=== PATIENT | female | born 1980 | race Caucasian/White ===

== ENCOUNTER 2019-10-24 17:01 | Emergency (ER) | payer OTHER ==
[~2019-10-24] VITALS: Wt 47.6 kg
[~2019-10-24 17:01] MED LIST: AMOXICILLIN500 MG PO; ANAPROX DS550 MG PO; BACTRIM DS 8001 TA1 PO; BIRTH CONTROL1 EACH PO; FLAGYL500 MG PO; MOTRIN800 MG PO; PONSTEL250 MG PO; VIBRA-TAB100 MG PO; VICODIN 5/500 505 MG PO; VICODIN 500 MG-1 TAB PO; ZITHROMAX Z PA250 MG PO
[2019-10-24 17:05] VITALS: BP 116/76
[2019-10-24 18:15] LABS: BILIRUBIN NEGATIVE (NEGATIVE); BLOOD NEGATIVE (NEGATIVE); CLARITY CLEAR (CLEAR); COLOR YELLOW (YELLOW); GLUCOSE NEGATIVE (NEGATIVE); KETONE NEGATIVE (NEGATIVE); LEUKO ESTERASE NEGATIVE (NEGATIVE); NITRITE NEGATIVE (NEGATIVE); SPECIFIC GRAVITY 1.015 (1.005-1.030); UROBILINOGEN 0.2 E.U./dl (0.2-1.0)
[2019-10-24 18:17] LABS: BACTERIA TRACE; WBC 0-2 wbc/hpf (0-5)
== END 2019-10-24 19:11 | disposition home or self-care (01) ==
LOC: ED 17:01
PROVIDERS: Physician Assistant
DX: Z20.2 Contact with and (suspected) exposure to infections with a predominantly sexual mode of transmission (principal)

== ENCOUNTER 2021-03-08 19:12 | Emergency (ER) | payer OTHER ==
[~2021-03-08] VITALS: Ht 162.5 cm; Wt 49.9 kg
[2021-03-08 19:45] VITALS: BP 100/70
[2021-03-08 20:06] LABS: BASO % 0.2 % (0.0-1.0); LYMPH # 0.5 10*3/uL (1.3-4.4); LYMPH % 8.3 % (27.0-41.0); MEAN CORPUSCULAR HGB 29.6 pg (27.0-31.0); MEAN CORPUSCULAR HGB CONC 33.6 g/dl (33.0-37.0); MEAN PLATELET VOLUME 9.4 fl (9.6-12.3); NEUT # 4.2 10*3/uL (2.3-7.9); NEUT % 73.3 % (47.0-73.0); PLATELET COUNT AUTOMATED 220 10*3/uL (130-400); RED CELL DISTRI WIDTH 12.6 % (0-14.5); WHITE BLOOD COUNT 5.7 10*3/uL (4.8-10.8)
[2021-03-08 20:20] LABS: ALBUMIN 3.7 gm/dl (3.1-4.5); ALKALINE PHOSPHATASE 120 U/L (45-117); BUN 7 mg/dl (7-24); CHLORIDE 103 mmol/L (98-107); CREATININE 0.82 mg/dL (0.55-1.02); SGOT/AST 50 IU/L (3-35); SGPT/ALT 69 U/L (12-78); SODIUM 137 mmol/L (136-145); TOTAL PROTEIN 7.6 gm/dL (6.4-8.2)
[2021-03-08 20:48] LABS: BILIRUBIN Negative (Negative); BLOOD 1+ (Negative); CLARITY Clear (Clear); COLOR Yellow (Yellow); GLUCOSE Negative (Negative); KETONE Negative (Negative); LEUKO ESTERASE Negative (Negative); NITRITE Negative (Negative); SPECIFIC GRAVITY 1.015 (1.001-1.030); UROBILINOGEN 0.2 E.U./dl (0.0-1.0)
[2021-03-08 21:03] LABS: BACTERIA 1+; MUCOUS TRACE; WBC 0-2 wbc/hpf (0-5)
== END 2021-03-08 22:33 | disposition home or self-care (01) ==
LOC: ED 19:12
PROVIDERS: Nurse Practitioner Family
DX: U07.1 COVID-19 (principal)

== ENCOUNTER 2021-06-25 17:20 | Emergency (ER) | payer OTHER ==
[~2021-06-25] VITALS: Wt 49.9 kg
[2021-06-25 17:35] VITALS: BP 138/86
[2021-06-25] MEDS ORDERED: CLINDAMYCIN HC300 MG PO (19:41)
== END 2021-06-25 20:11 | disposition home or self-care (01) ==
LOC: ED 17:20
DX: K04.7 Periapical abscess without sinus (principal); Z79.899 Other long term (current) drug therapy; Z90.49 Acquired absence of other specified parts of digestive tract; Z98.890 Other specified postprocedural states

== ENCOUNTER 2021-10-08 23:20 | Emergency (ER) | payer OTHER ==
[~2021-10-08 23:20] MED LIST changes: +CLINDAMYCIN HC300 MG PO
[2021-10-08 23:28] VITALS: BP 126/86
[2021-10-09] MEDS ORDERED: ULTRAM50 MG PO (00:58)
[2021-10-09] MEDS ORDERED: AMOXICILLIN500 M2 PO (00:58)
== END 2021-10-09 01:03 | disposition home or self-care (01) ==
LOC: ED 23:20
DX: K04.7 Periapical abscess without sinus (principal); Z79.899 Other long term (current) drug therapy; Z90.49 Acquired absence of other specified parts of digestive tract

== ENCOUNTER 2022-09-10 09:12 | Emergency (ER) | payer OTHER ==
[~2022-09-10] VITALS: Ht 162.5 cm; Wt 49.9 kg
[~2022-09-10 09:12] MED LIST changes: +AMOXICILLIN500 M2 PO; +ULTRAM50 MG PO; +VIBRAMYCIN100 MG PO
[2022-09-10 09:23] VITALS: BP 151/70
[2022-09-10 09:39] LABS: BILIRUBIN Negative (Negative); BLOOD Negative (Negative); CLARITY Clear (Clear); COLOR Yellow (Yellow); GLUCOSE Negative (Negative); KETONE Negative (Negative); LEUKO ESTERASE Trace (Negative); NITRITE Negative (Negative)
[2022-09-10 09:55] LABS: BASO # 0.1 10*3/uL (0.0-0.1); BASO % 0.6 % (0.0-1.0); EOS # 0.1 10*3/uL (0.0-0.4); EOS % 1.6 % (1.0-4.0); HEMATOCRIT 37.1 % (37.0-47.0); LYMPH # 2.5 10*3/uL (1.3-4.4); MEAN CELL VOLUME 85.9 fl (81.0-99.0); MEAN CORPUSCULAR HGB 30.1 pg (27.0-31.0); MEAN PLATELET VOLUME 8.9 fl (9.6-12.3); MONO # 0.7 10*3/uL (0.1-1.0); MONO % 7.9 % (3.0-9.0); NEUT % 59.7 % (47.0-73.0); PLATELET COUNT AUTOMATED 243 10*3/uL (130-400); RED BLOOD COUNT 4.32 10*6/uL (4.10-5.10); RED CELL DISTRI WIDTH 11.9 % (0-14.5); WHITE BLOOD COUNT 8.4 10*3/uL (4.8-10.8)
[2022-09-10 10:02] LABS: BACTERIA 1+
[2022-09-10 10:33] LABS: ALKALINE PHOSPHATASE 75 U/L (46-116); BUN 10 mg/dl (9-23); CHLORIDE 105 mmol/L (98-107); POTASSIUM 3.5 mmol/L (3.4-5.1); SGPT/ALT 9 U/L (10-49); THYROID STIM HORMONE (HS) 0.775 uIU/ml (0.550-4.780); TOTAL PROTEIN 6.8 gm/dL (6.0-8.0)
[2022-09-10] MEDS ORDERED: LASIX20 MG PO (11:13)
== END 2022-09-10 11:15 | disposition home or self-care (01) ==
LOC: ED 09:12
PROVIDERS: Emergency Medicine
DX: I89.0 Lymphedema, not elsewhere classified (principal); J45.909 Unspecified asthma, uncomplicated; Z90.49 Acquired absence of other specified parts of digestive tract; Z98.890 Other specified postprocedural states; Z79.899 Other long term (current) drug therapy

== ENCOUNTER 2023-06-10 11:14 | Emergency (ER) | payer OTHER ==
[~2023-06-10] VITALS: Ht 162.5 cm; Wt 52.2 kg
[~2023-06-10 11:14] MED LIST changes: +LASIX20 MG PO
[2023-06-10 11:37] VITALS: BP 133/83
[2023-06-10] MEDS ORDERED: Sulfamethoxazole/Trimethopri 1 TAB TAB PO ONE (11:55)
[2023-06-10] MEDS ORDERED: METRONIDAZOLE 500 MG TAB PO ONE (11:55)
[2023-06-10 11:58] LABS: BILIRUBIN Negative (Negative); BLOOD Negative (Negative); CLARITY Clear (Clear); COLOR Yellow (Yellow); GLUCOSE Negative (Negative); KETONE Negative (Negative); LEUKO ESTERASE Negative (Negative); NITRITE Negative (Negative); SPECIFIC GRAVITY 1.025 (1.001-1.030)
[2023-06-10 12:11] LABS: MUCOUS TRACE; RBC 0-2 rbc/hpf (0-2)
[2023-06-10] MEDS ORDERED: METRONIDAZOLE500 M1 PO (12:17)
[2023-06-10] MEDS ORDERED: SEPTDS PO (12:17)
== END 2023-06-10 12:20 | disposition home or self-care (01) ==
LOC: ED 11:14
PROVIDERS: Emergency Medicine
DX: L03.811 Cellulitis of head [any part, except face] (principal); N76.0 Acute vaginitis; J45.909 Unspecified asthma, uncomplicated; Z90.49 Acquired absence of other specified parts of digestive tract; Z98.890 Other specified postprocedural states

== ENCOUNTER 2023-10-08 17:44 | Emergency (ER) | payer OTHER ==
[~2023-10-08 17:44] MED LIST changes: +METRONIDAZOLE500 M1 PO; +SEPTDS PO
[2023-10-08 17:49] VITALS: BP 136/90
[2023-10-08] MEDS ORDERED: METRONIDAZOLE500 M1 PO (17:58)
[2023-10-08] MEDS ORDERED: METRONIDAZOLE 500 MG TAB PO ONE (18:00)
== END 2023-10-08 18:06 | disposition home or self-care (01) ==
LOC: ED 17:44
DX: N76.0 Acute vaginitis (principal); J45.909 Unspecified asthma, uncomplicated; F17.200 Nicotine dependence, unspecified, uncomplicated; Z90.49 Acquired absence of other specified parts of digestive tract; Z98.890 Other specified postprocedural states

== ENCOUNTER 2023-11-10 04:36 | Emergency (ER) | payer OTHER ==
[2023-11-10 04:51] VITALS: BP 138/96
[2023-11-10 05:30] LABS: BILIRUBIN Negative (Negative); BLOOD Negative (Negative); CLARITY Cloudy (Clear); COLOR Yellow (Yellow); GLUCOSE Negative (Negative); KETONE Trace (Negative); LEUKO ESTERASE Negative (Negative); NITRITE Negative (Negative); PH 5.5 (4.5-8.0); SPECIFIC GRAVITY 1.025 (1.001-1.030)
[2023-11-10 05:32] LABS: URINE AMPHETAMINES Negative (1000ng/ml); URINE BARBITURATES Negative (200ng/ml); URINE BENZODIAZEPINES Negative (200ng/ml); URINE CANNABINOIDS (THC) Positive (50ng/ml); URINE COCAINE Positive (300ng/ml); URINE METHADONE Negative (300ng/ml); URINE OPIATES Negative (300ng/ml); URINE PHENCYCLIDINE Negative (25ng/ml)
[2023-11-10 05:56] LABS: BACTERIA 1+; MUCOUS 1+
[2023-11-10] MEDS ORDERED: METRONIDAZOLE 500 MG TAB PO ONE (06:00)
[2023-11-10] MEDS ORDERED: Bacitracin Zinc 14 GM TUBE T ONE (06:00)
[2023-11-10] MEDS ORDERED: METRONIDAZOLE500 M1 PO (06:26)
== END 2023-11-10 06:34 | disposition home or self-care (01) ==
LOC: ED 04:36
PROVIDERS: Internal Medicine
DX: L98.8 Other specified disorders of the skin and subcutaneous tissue (principal); R10.30 Lower abdominal pain, unspecified; J45.909 Unspecified asthma, uncomplicated; F17.200 Nicotine dependence, unspecified, uncomplicated; Z90.49 Acquired absence of other specified parts of digestive tract; Z98.890 Other specified postprocedural states; Z79.899 Other long term (current) drug therapy

== ENCOUNTER → 2024-03-13 | Outpatient (CLI) | payer OTHER | END | disposition home or self-care (01) | LOC: US 13:00 | PROVIDERS: ATTEND Nurse Practitioner Women's Health | DX: D24.1 Benign neoplasm of right breast (principal); N63.10 Unspecified lump in the right breast, unspecified quadrant; N60.02 Solitary cyst of left breast; N60.01 Solitary cyst of right breast ==

== ENCOUNTER → 2024-06-12 | Outpatient (CLI) | payer OTHER | END | disposition home or self-care (01) | LOC: US 08:53 | PROVIDERS: ATTEND Nurse Practitioner Women's Health | DX: D24.1 Benign neoplasm of right breast (principal) ==

== ENCOUNTER → 2024-11-21 | Outpatient (CLI) | payer OTHER | END | disposition home or self-care (01) | LOC: LAB 12:30 | PROVIDERS: ATTEND Nurse Practitioner Family | DX: N89.8 Other specified noninflammatory disorders of vagina (principal); R30.0 Dysuria ==

== ENCOUNTER → 2024-11-23 | Outpatient (CLI) | payer OTHER | END | disposition home or self-care (01) | LOC: LAB 17:40 | PROVIDERS: ATTEND Nurse Practitioner Family | DX: N89.8 Other specified noninflammatory disorders of vagina (principal); R30.0 Dysuria ==